=== PATIENT | male | born 1965 | race Caucasian/White ===

== ENCOUNTER 2022-07-02 16:40 | Emergency (ER) | payer OTHER ==
[~2022-07-02] VITALS: Ht 180.3 cm; Wt 74.0 kg
[2022-07-02] MEDS ORDERED: KETOROLAC TROMETHAMINE 30 MG/ML VIAL IV STA (17:00)
[2022-07-02] MEDS ORDERED: ONDANSETRON HCL INJ 2MG/ML 2ML 2 MG/ML VIAL IV STA (17:00)
[2022-07-02] MEDS ORDERED: SODIUM CHLORIDE 0.9% 1000ML 1,000 ML IV SCH (17:00)
[2022-07-02] MEDS ORDERED: FAMOTIDINE 20 MG/2 ML VIAL IV STA (17:00)
[2022-07-02] MEDS ORDERED: KETOROLAC TROMETHAMINE 30 MG/ML VIAL ONE (17:14)
[2022-07-02] MEDS ORDERED: FAMOTIDINE 20 MG/2 ML VIAL IV ONE (17:14)
[2022-07-02] MEDS ORDERED: SODIUM CHLORIDE 0.9% 1000ML 1,000 ML ONE (17:14)
[2022-07-02] MEDS ORDERED: ONDANSETRON HCL INJ 2MG/ML 2ML 2 MG/ML VIAL ONE (17:14)
[2022-07-02] MEDS ORDERED: PROMETHAZINE 25MG/ NS 50ML (IV) IV ONE (17:30)
[2022-07-02] MEDS ORDERED: PROMETHAZINE HCL (IM) 25 MG/ML VIAL IM ONE (17:35)
[2022-07-02] MEDS ORDERED: DICYCLOMINE HCL 20 MG/2 ML VIAL IM ONE (18:00)
[2022-07-02] MEDS ORDERED: ONDANSETRON ODT4 MG PO (18:45)
[2022-07-02] MEDS ORDERED: DICYCLOMINE HCL20 MG PO (18:45)
[2022-07-02 19:00] VITALS: BP 162/99
[2022-07-02] MEDS ORDERED: METOCLOPRAMIDE HCL 10 MG/2ML VIAL IV ONE (19:00)
== END 2022-07-02 19:00 | disposition home or self-care (01) ==
LOC: FSED 17:04
DX: R11.2 Nausea with vomiting, unspecified (principal); F11.20 Opioid dependence, uncomplicated; K57.90 Diverticulosis of intestine, part unspecified, without perforation or abscess without bleeding; F12.10 Cannabis abuse, uncomplicated; F17.290 Nicotine dependence, other tobacco product, uncomplicated; Z88.5 Allergy status to narcotic agent; N40.0 Benign prostatic hyperplasia without lower urinary tract symptoms; Q53.20 Undescended testicle, unspecified, bilateral
CPT/HCPCS: 74176; 80048; 80076; 81003; 85025; 96374; 96375; 96376; 99284; J1885; J2405; J2550; J7030